=== PATIENT | female | born 1970 | race Caucasian/White ===

== ENCOUNTER → 2019-04-01 | Outpatient (REF) | payer OTHER | LOC: M SFHCLERA 17:23 | PROVIDERS: ATTEND Physician Assistant | DX: N39.0 Urinary tract infection, site not specified (principal) | CPT/HCPCS: 81002; 87088; 87186; G0463 ==

== ENCOUNTER 2020-02-29 20:55 | Observation (INO) | payer OTHER ==
[~2020-02-29] VITALS: Ht 162.6 cm; Wt 58.3 kg
[2020-02-29 12:10] VITALS: BP 110/53
[2020-02-29] MEDS ORDERED: CVS1CHW13 PO (21:01)
[2020-02-29] MEDS ORDERED: MULT1TAB8 PO (21:01)
[2020-02-29] MEDS ORDERED: NS 1,000 ML IV SCH (21:13)
[2020-02-29] MEDS ORDERED: GI COCKTAIL 50ML BTL(HYOSCYAMINE/MAALOX/LIDOCAINE VISCOUS)(1:3:1) PO ONE (21:15)
[2020-02-29] MEDS ORDERED: PANTOPRAZOLE 40MG VIAL (C9113 PER 1) IV ONE (21:15)
[2020-02-29 21:33] LABS: BASO % 0.6 % (0.0-1.0); EOS # 0.2 10^3/uL (0.0-0.5); EOS % 2.2 % (0.0-3.0); HEMATOCRIT 37.3 % (36.0-47.0); HEMOGLOBIN 12.4 g/dl (12.0-15.5); LYMPH # 2.7 10^3/uL (1.5-5.0); LYMPH % 40.5 % (24.0-44.0); MEAN CORPUSCULAR HEMOGLOBIN 29.5 pg (27.0-33.0); MEAN CORPUSCULAR HGB CONC 33.2 g/dl (32.0-36.5); MEAN CORPUSCULAR VOLUME 88.6 fl (80.0-96.0); MONO # 0.4 10^3/uL (0.0-0.8); MONO % 5.8 % (0.0-5.0); NEUTROPHILS # 3.4 10^3/uL (1.5-8.5); NEUTROPHILS % 50.6 % (36.0-66.0); PLATELET COUNT, AUTOMATED 268 10^3/uL (150-450); RED BLOOD COUNT 4.21 10^6/uL (4.00-5.40); WHITE BLOOD COUNT 6.7 10^3/uL (4.0-10.0)
[2020-02-29 21:43] LABS: INR 1.04; PROTHROMBIN TIME 13.3 SECONDS (11.8-14.0)
[2020-02-29 21:44] LABS: PARTIAL THROMBOPLASTIN TIME 32.5 SECONDS (25.0-38.4)
[2020-02-29 21:58] LABS: ALBUMIN 3.6 GM/DL (3.2-5.2); ALT/SGPT 36 U/L (12-78); BILIRUBIN,DIRECT 0.2 MG/DL (0.0-0.2); BILIRUBIN,TOTAL 0.6 MG/DL (0.2-1.0); BLOOD UREA NITROGEN 24 MG/DL (7-18); CALCIUM LEVEL 8.4 MG/DL (8.5-10.1); CARBON DIOXIDE LEVEL 27 MEQ/L (21-32); CHLORIDE LEVEL 105 MEQ/L (98-107); CK-MB VALUE MASS 1.9 NG/ML (<3.6); CPK CREATINE PHOSPHOKINASE 142 U/L (26-192); CREATININE FOR GFR 0.79 MG/DL (0.55-1.30); GLOMERULAR FILTRATION RATE > 60.0 (>58); GLUCOSE, FASTING 77 MG/DL (70-100); LIPASE 127 U/L (73-393); MB/CK RELATIVE INDEX 1.34 (< OR =4); POTASSIUM SERUM 3.6 MEQ/L (3.5-5.1); SODIUM LEVEL 139 MEQ/L (136-145); TROPONIN I < 0.02 NG/ML (< 0.10)
--- NOTE | 2020-02-29 22:17 | REPVR ---
PROCEDURE INFORMATION: Exam: US Abdomen Limited, Right Upper Quadrant Exam date and time: 02/29/2020 10:08 PM Age: 49 years old Clinical indication: Abdominal pain; Acute; Additional info: Ruq pain TECHNIQUE: Imaging protocol: Real-time ultrasound of the abdomen with image documentation. Examination was focused on the right upper quadrant. COMPARISON: No relevant prior studies available. FINDINGS: Liver: The echogenicity of the liver is within normal limits. No liver lesion is identified from the images obtained. The contour of the liver is smooth. Gallbladder: There are several calculi in the distended gallbladder. No gallbladder wall thickening or pericholecystic fluid is noted. The gallbladder was tender over the ultrasound transducer. Common bile duct: The common bile duct is normal in caliber and measures 5 mm in diameter at the level of the killian hepatis. Pancreas: The pancreas is unremarkable. Right kidney: The right kidney is normal in appearance and measures 10.4 cm in length. There is no renal cortical thinning. The renal cortical echogenicity is within normal limits. No renal lesion is seen. There is no hydronephrosis. No obvious stones are seen in the renal collecting system. Intraperitoneal space: No free fluid is seen from the images obtained. IMPRESSION: Cholelithiasis with sonographic evidence for acute cholecystitis. Electronically signed by: Steven Fernando On 02/29/2020 22:16:55 PM
[2020-02-29] MEDS ORDERED: MORPHINE 4 MG/ML 1ML VIAL/SYRINGE (J2270) IV ONE (22:30)
[2020-02-29] MEDS ORDERED: KETOROLAC 30 MG/ML 1ML VIAL IV PRN (22:30)
[2020-02-29] MEDS ORDERED: PIPERACILLIN/TAZOBACTAM SOD 3.375 GM in D5W MINI-BAG PLUS 50 ML IV SCH (22:30)
[2020-02-29] MEDS ORDERED: MORPHINE 2 MG/ML 1ML VIAL (J2270) IV PRN (22:30)
[2020-02-29] MEDS ORDERED: MORPHINE 4 MG/ML 1ML VIAL/SYRINGE (J2270) IV PRN (22:30)
[2020-02-29] MEDS ORDERED: AMPH1CAP15 PO (22:39)
[2020-02-29] MEDS ORDERED: KETOROLAC 30 MG/ML 1ML VIAL IV ONE (22:45)
[2020-02-29] MEDS: D5W/LR 1,000 ML IV SCH (22:47)
[2020-02-29] MEDS ORDERED: ADVI200T17 PO (23:15)
[2020-03-01 00:10] VITALS: BP 110/53
[2020-03-01] MEDS: PIPERACILLIN/TAZOBACTAM SOD 3.375 GM in D5W MINI-BAG PLUS 50 ML IV SCH ×4 (01:10→18:22)
[2020-03-01 04:00] VITALS: BP 110/68
--- NOTE | 2020-03-01 08:04 | ECGEPIP ---
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
[2020-03-01] MEDS: PANTOPRAZOLE 40MG VIAL (C9113 PER 1) IV SCH (08:22)
[2020-03-01] MEDS: D5W/LR 1,000 ML IV SCH ×2 (09:22→14:25)
[2020-03-01 10:00] VITALS: BP 97/59
[2020-03-01 11:18] LABS: HEMATOCRIT 33.3 % (36.0-47.0); MEAN CORPUSCULAR HEMOGLOBIN 29.7 pg (27.0-33.0); PLATELET COUNT, AUTOMATED 239 10^3/uL (150-450)
[2020-03-01 12:06] LABS: ALBUMIN 3.1 GM/DL (3.2-5.2); ALT/SGPT 175 U/L (12-78); BILIRUBIN,TOTAL 1.5 MG/DL (0.2-1.0); BLOOD UREA NITROGEN 19 MG/DL (7-18); CARBON DIOXIDE LEVEL 26 MEQ/L (21-32); CHLORIDE LEVEL 109 MEQ/L (98-107); CREATININE FOR GFR 0.81 MG/DL (0.55-1.30); GLOMERULAR FILTRATION RATE > 60.0 (>58); GLUCOSE, FASTING 92 MG/DL (70-100); POTASSIUM SERUM 3.9 MEQ/L (3.5-5.1); SODIUM LEVEL 140 MEQ/L (136-145); TOTAL PROTEIN 5.7 GM/DL (6.4-8.2)
[2020-03-01 14:00] VITALS: BP 92/56
--- NOTE | 2020-03-01 17:41 | IPN ---
DATE: 03/01/2020 The patient overall has had some improvement of her discomfort overnight but still says it is a 5/10 of her pain and she still had been taking some pain medication and overall she has been afebrile. She has some mild discomfort in the right upper quadrant. I do feel that she has made some progress but not significant resolution as I would anticipate. IMPRESSION/PLAN: The patient has improving cholecystitis clinically, however, will get a followup complete blood count (CBC) and some liver function tests (LFTs) and determine our next course of action. We will also start on some clear liquids and advance her diet should she be doing better later on today. ADDENDUM: The patient's liver function tests came back elevated and she still has ongoing pain and discomfort. Thus, I ordered an MRI/ MRCP to rule out common bile duct obstruction/common bile duct stones. I do feel that this is a more likely diagnosis given the normal white count and the afebrile status than a cholecystitis presentation with ongoing pain. Thus, we will see what this shows and if it shows common bile duct stones will get the papier mache' molder to evaluate her for possible endoscopic retrograde cholangiopancreatography (ERCP). Otherwise, if this is clear we will keep her overnight and continue the antibiotics, IV fluids and some clear liquids, and reevaluate in the morning and make sure that the liver function tests are coming down. If they are coming down that would suggest that she passed a common bile duct stone.
--- NOTE | 2020-03-01 17:46 | HPE ---
DATE OF ADMISSION: 03/01/2020 BRIEF HISTORY OF PRESENT ILLNESS: The patient is a 49-year-old female who presents to the emergency room with severe abdominal pain. Has not had any previous episodes of abdominal pain similar to this; it is mostly in the epigastric area and in the right upper quadrant. It started early that morning, although she did notice that the night before she ate some fatty foods; it was stuffed peppers. She has not any acholic stools. No bilirubinuria. No evidence of biliary colic in the past. No significant problems with gastroesophageal reflux symptoms, past medical history and no evidence of gallstone pancreatitis on her workup. Liver function tests were normal. I was asked to see the patient for pain and tenderness in the right upper quadrant that was consistent with cholecystitis and needed hospitalization for pain control issues. ' PAST MEDICAL HISTORY: Significant for a history of tubal ligation. MEDICATIONS: Include multivitamin, fiber supplements, Advil PM. ALLERGIES: None. PHYSICAL EXAMINATION: Reveals a 49-year-old female, looks stated age. HEENT: Reveals an atraumatic, normocephalic head with extraocular movements intact. Pupils are equal and reactive to light. Sclerae are nonicteric. Oropharynx clear without exudate or lesions. Neck supple without neuropathy. Abdomen is soft, nondistended, but she had some tenderness in the right upper quadrant with guarding without significant rebound but definitely some positive tenderness and on gallbladder ultrasound that was performed, they felt that she had a positive Vazquez sign with palpation. However, the gallbladder did have some distension, but there was no gallbladder wall thickening or pericholecystic fluid, And thus the thought was that there were some gallstones and possible cholecystitis given the exam portion of this. IMPRESSION AND PLAN: The patient has tenderness on the right upper quadrant consistent with cholecystitis. At this point, given a normal white count, it may be early in her course of cholecystitis. She does AST that is slightly elevated but otherwise normal liver function tests. No elevation of lipase and given the distended gallbladder, this is most likely secondary to a possible cystic duct obstruction, but she has had some significant relief with minimal pain medication here in the emergency room. We will keep her nothing by mouth, intravenous (IV) fluids and watch her overnight and see how she is doing tomorrow depending on her symptoms; if she resolves her symptoms completely, we may be able to advance her diet and discharge her to home. However, if she does not seem to make adequate progress, we will get some follow-up labs and determine our next course of action based on that.
[2020-03-01] MEDS: ONDANSETRON 4MG/2ML VIAL IV PRN (21:31)
[2020-03-01] MEDS: NORCO, ANEXSIA 5/325MG TABLET (HYDROcodone/ACETAMINOPHEN) PO PRN (21:33)
[2020-03-01 22:00] VITALS: BP 96/67
[2020-03-02] VITALS (10 sets, daily range): BP systolic 97–124; BP diastolic 49–73
--- NOTE | 2020-03-02 | REP ---
MRCP: MRCP exam is accomplished utilizing multiple heavily T2-weighted sequences in the axial and coronal planes. MIP reconstruction images are performed. The gallbladder is moderately distended. Multiple small filling defects in the gallbladder are consistent with multiple gallstones. There is diffuse moderate gallbladder wall edema and mild pericholecystic fluid. The findings are compatible with cholecystitis. There is no intrahepatic or extrahepatic biliary dilatation. Common bile duct has a maximum diameter of 4 mm. No filling defect or stone is seen in the common bile duct. Pancreatic duct is normal in caliber. There is mild periportal edema. Otherwise, the visualized liver, spleen, adrenals, pancreas, and kidneys are unremarkable in appearance. IMPRESSION: Findings compatible with cholelithiasis and cholecystitis. No biliary dilatation or evidence of choledocholithiasis. No pancreatic duct dilatation. Electronically Signed by Trevon Beach MD 03/02/2020 09:20 A
[2020-03-02] MEDS: PIPERACILLIN/TAZOBACTAM SOD 3.375 GM in D5W MINI-BAG PLUS 50 ML IV SCH ×4 (00:08→17:50)
[2020-03-02] MEDS: D5W/LR 1,000 ML IV SCH ×3 (00:08→14:25)
[2020-03-02] MEDS: NORCO, ANEXSIA 5/325MG TABLET (HYDROcodone/ACETAMINOPHEN) PO PRN ×3 (05:37→15:27)
[2020-03-02 05:54] LABS: HEMATOCRIT 33.2 % (36.0-47.0); HEMOGLOBIN 10.9 g/dl (12.0-15.5); MEAN CORPUSCULAR HEMOGLOBIN 29.8 pg (27.0-33.0); MEAN CORPUSCULAR HGB CONC 32.8 g/dl (32.0-36.5); MEAN CORPUSCULAR VOLUME 90.7 fl (80.0-96.0); PLATELET COUNT, AUTOMATED 241 10^3/uL (150-450); RED BLOOD COUNT 3.66 10^6/uL (4.00-5.40); WHITE BLOOD COUNT 4.9 10^3/uL (4.0-10.0)
[2020-03-02 06:04] LABS: ALBUMIN 2.7 GM/DL (3.2-5.2); ALT/SGPT 139 U/L (12-78); BILIRUBIN,TOTAL 1.1 MG/DL (0.2-1.0); BLOOD UREA NITROGEN 12 MG/DL (7-18); CALCIUM LEVEL 8.2 MG/DL (8.5-10.1); CARBON DIOXIDE LEVEL 28 MEQ/L (21-32); CHLORIDE LEVEL 110 MEQ/L (98-107); CREATININE FOR GFR 0.92 MG/DL (0.55-1.30); GLOMERULAR FILTRATION RATE > 60.0 (>58); GLUCOSE, FASTING 114 MG/DL (70-100); POTASSIUM SERUM 3.9 MEQ/L (3.5-5.1); SODIUM LEVEL 144 MEQ/L (136-145); TOTAL PROTEIN 5.5 GM/DL (6.4-8.2)
[2020-03-02] MEDS: PANTOPRAZOLE 40MG VIAL (C9113 PER 1) IV SCH (09:57)
[2020-03-02] MEDS: ONDANSETRON 4MG/2ML VIAL IV PRN ×2 (09:57→20:00)
[2020-03-02] MEDS ORDERED: MIDAZOLAM INJ 2MG/2ML VIAL (J2250 PER 1MG) As Ordered ONE (10:01)
[2020-03-02] MEDS ORDERED: fentaNYL 250 MCG/5 ML INJECTION (J3010) As Ordered ONE (10:01)
[2020-03-02] MEDS ORDERED: ROCURONIUM BROMIDE 50 MG/5 ML VIAL As Ordered ONE ×2 (10:02→13:34)
[2020-03-02] MEDS ORDERED: ONDANSETRON 4MG/2ML VIAL As Ordered ONE ×2 (10:02→13:43)
[2020-03-02] MEDS ORDERED: dexameTHASONE 4 MG/ML 1ML VIAL (J1100 PER 1MG) As Ordered ONE (10:02)
[2020-03-02] MEDS ORDERED: LIDOCAINE 2% 100MG/5ML SDV (FOR ANES.) As Ordered ONE (10:02)
[2020-03-02] MEDS ORDERED: propofoL 200 MG/20 ML VIAL As Ordered ONE (10:02)
[2020-03-02] MEDS ORDERED: METOCLOPRAMIDE INJ 10MG/2ML VIAL (J2765 PER 1) As Ordered ONE (12:47)
[2020-03-02] MEDS ORDERED: BUPIVACAINE/EPIN 0.25% 30 ML VIAL As Ordered ONE (12:50)
[2020-03-02] MEDS ORDERED: ZOSYN 3.375GM VIAL (J2543) As Ordered ONE (13:23)
[2020-03-02] MEDS ORDERED: KETOROLAC 60 MG/2 ML VIAL As Ordered ONE (13:43)
[2020-03-02] MEDS ORDERED: SUGAMMADEX SODIUM 500 MG/5 ML VIAL (BRIDION) As Ordered ONE (13:44)
--- NOTE | 2020-03-02 14:44 | RO ---
DATE OF PROCEDURE: 03/02/2020 PREOPERATIVE DIAGNOSIS: Acute cholecystitis. POSTOPERATIVE DIAGNOSIS: Acute cholecystitis. PROCEDURE: Laparoscopic cholecystectomy. SURGEON: Chalino Yeh Jr., MD REVENUE STAMP CUTTER: ANESTHESIA: General endotracheal anesthesia. ESTIMATED BLOOD LOSS (EBL): Minimal. FLUIDS: Crystalloid. BRIEF PROCEDURE SUMMARY: The patient was brought to the operating room and was given general anesthesia. After adequate anesthesia and preoperative antibiotics were given, the patient was prepped and draped in the usual sterile fashion. Next, a supraumbilical incision was made with skin knife. Blunt dissection was carried down to fascia. Veress needle placed into the abdominal cavity, insufflated with 15 mm of pressure, and a dilating 10 mm trocar was placed at this time under direct visualization, and epigastric and lateral trocars were placed. The gallbladder was tensely distended. At this time, it was decompressed with a decompressing needle and grasped, retracted superiorly, and there was some omentum that was adherent to the gallbladder wall, and that was taken down with hook cautery, and then the neck of the gallbladder was cleared of peritoneum using electrocautery circumferentially around the gallbladder and the neck of the gallbladder. The cystic duct and cystic artery were closely approximated, but I was able to take a [place] and separate the two. Once this was , a critical view of safety was obtained, and the cystic artery was clipped proximally and transected distally with electrocautery. The neck of the gallbladder was seen to taper down, and this was clipped proximally, distally, and transected. The gallbladder was taken from the gallbladder bed using electrocautery and placed in an EndoCatch bag, brought out through the umbilicus. The right upper quadrant was copiously irrigated until clear. All trocars were removed under direct visualization. 0 Vicryl was used to close the fascia at the umbilicus, and all incisions were closed with 4-0 Vicryl. Steri-Strips and a dry sterile dressing were applied. The patient was awakened, extubated, and brought to the recovery room awake, alert, and hemodynamically stable.
[2020-03-02] MEDS ORDERED: PERCOCET 5MG/325MG TAB PO PRN (14:45)
[2020-03-02] MEDS ORDERED: METOCLOPRAMIDE INJ 10MG/2ML VIAL (J2765 PER 1) IV PRN (14:45)
[2020-03-02] MEDS ORDERED: ONDANSETRON 4MG/2ML VIAL IV PRN (14:45)
[2020-03-02] MEDS ORDERED: fentaNYL 100 MCG/2 ML INJECTION (J3010) IV PRN (14:45)
[2020-03-02] MEDS ORDERED: LR 1,000 ML IV SCH (14:45)
[2020-03-02] MEDS ORDERED: KETOROLAC 30 MG/ML 1ML VIAL IV SCH (15:00)
[2020-03-02] MEDS: KETOROLAC 30 MG/ML 1ML VIAL IV SCH (19:43)
[2020-03-03] MEDS: PIPERACILLIN/TAZOBACTAM SOD 3.375 GM in D5W MINI-BAG PLUS 50 ML IV SCH ×3 (00:11→12:00)
[2020-03-03] MEDS: KETOROLAC 30 MG/ML 1ML VIAL IV SCH ×2 (01:46→08:00)
[2020-03-03 02:00] VITALS: BP 102/56
[2020-03-03 06:00] VITALS: BP 103/54
[2020-03-03] MEDS: ONDANSETRON 4MG/2ML VIAL IV PRN (06:35)
[2020-03-03] MEDS: NORCO, ANEXSIA 5/325MG TABLET (HYDROcodone/ACETAMINOPHEN) PO PRN (08:39)
[2020-03-03] MEDS: PANTOPRAZOLE 40MG VIAL (C9113 PER 1) IV SCH (08:39)
[2020-03-03 10:00] VITALS: BP 105/58
== END 2020-03-03 13:50 | disposition home or self-care (01) ==
LOC: M ED 20:55 → M MS5PR 20:56 → ENRESERV 23:08 → M ED 03-01 00:07 → UNDOADMOB 03-01 00:10 → M MS5PR 03-01 00:10 → UNDODISOB 03-03 13:50
PROVIDERS: ADMIT Surgery; ATTEND Surgery
DX: K80.10 Calculus of gallbladder with chronic cholecystitis without obstruction (principal); Z79.899 Other long term (current) drug therapy
CPT/HCPCS: 36415; 47562; 74181; 76705; 80048; 80053; 80076; 82550; 82553; 83690; 84484; 85025; 85027; 85610; 85730; 88304; 93005; 93041; 96361; 96365; 96366; 96375; 96376; 99285; C9113; J1100; J1885; J2250; J2270; J2405; J2543; J2765; J3010

== ENCOUNTER → 2024-01-21 | Outpatient (REF) | payer OTHER ==
[~2024-01-21] MED LIST: ADVI200T17 PO; AMPH1CAP15 PO; CVS1CHW13 PO; MULT1TAB8 PO
== END ==
LOC: M WUC 21:24
PROVIDERS: ATTEND Physician Assistant
DX: R30.0 Dysuria (principal)